=== PATIENT | female | born 1965 | race Caucasian/White ===

== ENCOUNTER → 2020-11-28 | Outpatient (CLI) | payer OTHER ==
[~2020-11-28] MED LIST: BACTRIM DS TAB1 EACH PO; BACTROBAN NASAL1 G1 TOP; CLEOCIN HCL300 MG PO; NORCO 5-325 TA1 EACH PO; NORCO 7.5-3251 EACH PO
[2020-11-28 13:38] LABS: HEMOGLOBIN 12.4 gm/dl (12.3-15.3); RED BLOOD COUNT 4.34 M/UL (4.00-5.10); WHITE BLOOD COUNT 6.9 K/UL (4.5-11.0)
[2020-11-29 07:11] LABS: T3 UPTAKE 24 % (24-39); VITAMIN D, 25-HYDROXY 25.3 ng/mL (30.0-100.0)
[2020-11-29 14:11] LABS: THYROGLOBULIN ANTIBODY <1.0 IU/mL (0.0-0.9); THYROID PEROXIDASE (TPO) AB 12 IU/mL (0-34)
== END ==
LOC: LAB 12:44
PROVIDERS: Registered Nurse Administrator
DX: F43.10 Post-traumatic stress disorder, unspecified (principal); Z79.899 Other long term (current) drug therapy
CPT/HCPCS: 36415; 80053; 80061; 82607; 82746; 83036; 84439; 84443; 84479; 85025; 86376; 86800

== ENCOUNTER → 2021-02-20 | Outpatient (CLI) | payer OTHER ==
[2021-02-20 15:49] LABS: HEMOGLOBIN 12.6 gm/dl (12.3-15.3); RED BLOOD COUNT 4.51 M/UL (4.00-5.10); WHITE BLOOD COUNT 7.2 K/UL (4.5-11.0)
== END ==
LOC: LAB 14:01
PROVIDERS: Family Medicine
DX: R79.89 Other specified abnormal findings of blood chemistry (principal); E53.8 Deficiency of other specified B group vitamins; R42 Dizziness and giddiness; R13.10 Dysphagia, unspecified; E78.5 Hyperlipidemia, unspecified; E55.9 Vitamin D deficiency, unspecified
CPT/HCPCS: 36415; 80053; 80061; 82607; 83520; 84436; 84439; 84443; 84481; 85027

== ENCOUNTER → 2021-11-17 | Outpatient (CLI) | payer OTHER | LOC: KOH-I 12:32 | DX: R74.01 Elevation of levels of liver transaminase levels (principal); K59.00 Constipation, unspecified; R94.4 Abnormal results of kidney function studies; E03.9 Hypothyroidism, unspecified; E78.49 Other hyperlipidemia; R10.84 Generalized abdominal pain; R06.00 Dyspnea, unspecified | CPT/HCPCS: 71046; 74018 ==